=== PATIENT | male | born 1975 | race Caucasian/White ===

== ENCOUNTER 2018-10-26 17:22 | Emergency (ER) | payer OTHER ==
[2018-10-26] MEDS ORDERED: DEXAMETHASONE SOD PHOSPHATE 10MG/ML 1ML VIAL ONE (17:44)
[2018-10-26] MEDS ORDERED: KETOROLAC TROMETHAMINE 60 MG/2 ML VIAL ONE (17:44)
== END 2018-10-26 18:33 | disposition home or self-care (01) ==
LOC: EDH 17:22
DX: M75.22 Bicipital tendinitis, left shoulder (principal); Z87.891 Personal history of nicotine dependence
CPT/HCPCS: 96372 ×2; 99283; J1100; J1885